=== PATIENT | male | born 1985 | race Two or more races ===

== ENCOUNTER 2022-03-15 08:17 | Emergency (ER) | payer MEDICAID, OTHER ==
[~2022-03-15] VITALS: Ht 188 cm; Wt 117.9 kg
[2022-03-15 08:17] VITALS: BP 118/75
[2022-03-15 09:26] LABS: Urine WBC None Seen /hpf (0 - 3)
[2022-03-15 10:14] LABS: Amphetamine Screen, Urine POSITIVE (NEGATIVE); Barbiturate Scree,Urine NEGATIVE (NEGATIVE); Benzodiazephine Screen, Urine NEGATIVE (NEGATIVE); Cannabinoid Screen, Urine POSITIVE (NEGATIVE); Cocaine Screen, Urine NEGATIVE (NEGATIVE); Opiate Scree,Urine NEGATIVE (NEGATIVE); Phencyclidine Screen, Urine NEGATIVE (NEGATIVE)
[2022-03-15 10:32] LABS: Urine Bacteria NONE SEEN /hpf (None Seen); Urine Blood Negative /uL (Negative); Urine Specific Gravity 1.012 (1.001-1.035)
[2022-03-15 10:39] LABS: Acetaminophen < 2.0 ug/mL (10-30); Potassium 3.7 mmol/L (3.5-5.1); Salicylate < 1.7 mg/dL (2.8-20.0)
[2022-03-15 10:46] LABS: Albumin 3.7 g/dL (3.4-5.0); BUN/Creatinine Ratio 16.5; Bilirubin, Total 0.4 mg/dL (0.2-1.0); Calcium 8.9 mg/dL (8.5-10.1); Total Protein 7.2 g/dL (6.4-8.2)
[2022-03-15 10:56] LABS: Basophils # (auto) 0.1 10 ^3/uL (0-0.2); Basophils % (auto) 1.4 % (0.0-2.0); Eosinophils # (auto) 0.1 10 ^3/uL (0-0.8); Eosinophils % (auto) 2.2 % (0.0-7.0); Hemoglobin 13.6 g/dL (13.5-17.5); Lymphocytes # (auto) 1.8 10 ^3/uL (0.4-5.4); Lymphocytes % (auto) 26.8 % (10.0-50.0); Mean Corpuscular Hemoglobin 30.1 pg (28.0-32.0); Mean Corpuscular Volume 88.7 fL (80.0-100.0); Monocytes # (auto) 0.6 10 ^3/uL (0-1.3); Monocytes % (auto) 9.6 % (0.0-12.0); Red Blood Cells 4.51 10^6/uL (4.5-5.90); White Blood Cell 6.6 10^3/uL (4.4-10.8)
== END 2022-03-15 12:20 | disposition left against medical advice (07) ==
LOC: ER 08:17
DX: R45.851 Suicidal ideations (principal); F15.10 Other stimulant abuse, uncomplicated; F31.9 Bipolar disorder, unspecified; F20.9 Schizophrenia, unspecified; Z59.00 Homelessness unspecified
CPT/HCPCS: 36415; 80053; 80307; 80329; 81001; 85025

== ENCOUNTER 2024-07-08 19:26 | Emergency (ER) | payer MEDICAID ==
[~2024-07-08] VITALS: Ht 177.8 cm; Wt 110.0 kg
[2024-07-08 20:25] VITALS: BP 115/74; PULSE 76; RESP 18; TEMP 98.6; O2SAT 97
[2024-07-08] MEDS: KETOROLAC TROMETH 60MG/2ML VIAL IM ONE (21:02)
[2024-07-08] MEDS ORDERED: IBUP-1456 PO (21:32)
[2024-07-08] MEDS ORDERED: METH-1181 PO (21:32)
== END 2024-07-08 21:47 | disposition home or self-care (01) ==
LOC: ER 19:26 → EDBD 19:26 → ER 21:47
DX: S16.1XXA Strain of muscle, fascia and tendon at neck level, initial encounter (principal); S20.211A Contusion of right front wall of thorax, initial encounter; F15.10 Other stimulant abuse, uncomplicated; Z79.1 Long term (current) use of non-steroidal anti-inflammatories (NSAID); Z59.00 Homelessness unspecified; V43.52XA Car driver injured in collision with other type car in traffic accident, initial encounter; Y93.89 Activity, other specified; Y92.89 Other specified places as the place of occurrence of the external cause; Y99.8 Other external cause status
CPT/HCPCS: 71101; 72040; 73030; 96372; 99284; J1885